=== PATIENT | male | born 1995 | race Caucasian/White ===

== ENCOUNTER 2017-10-17 13:37 | Emergency (ER) | payer OTHER ==
[~2017-10-17] VITALS: Ht 170.2 cm; Wt 74.8 kg
[2017-10-17] MEDS ORDERED: TRAZODONE 150150 M1 PO (13:49)
[2017-10-17] MEDS ORDERED: CELEXA40 MG PO (13:49)
[2017-10-17] MEDS ORDERED: KEFLEX500 M1 PO (14:29)
[2017-10-17 14:46] VITALS: BP 117/55
== END 2017-10-17 14:47 | disposition home or self-care (01) ==
LOC: M.ERS 13:37
DX: S81.811A Laceration without foreign body, right lower leg, initial encounter (principal); J45.909 Unspecified asthma, uncomplicated; F32.9 Major depressive disorder, single episode, unspecified; F17.210 Nicotine dependence, cigarettes, uncomplicated; X58.XXXA Exposure to other specified factors, initial encounter; Y93.89 Activity, other specified; Y92.89 Other specified places as the place of occurrence of the external cause; Y99.8 Other external cause status